=== PATIENT | male | born 1985 | race Caucasian/White ===

== ENCOUNTER 2018-08-11 09:38 | Emergency (ER) | payer BC ==
--- NOTE | 2018-08-11 10:00 | EDPHY ---
H & P Stated Complaint: Bilat ankle weakness and numbness, sent by case management director. Time Seen by Provider: 08/11/18 09:57 HPI/ROS: CHIEF COMPLAINT: Bilateral foot week HISTORY OF PRESENT ILLNESS: 32-year-old male generally healthy arrives via private vehicle. He describes 2 weeks of bilateral foot weakness, notes that when he is walking cross his carpet his bilateral great toes will sometimes get caught on the carpet. He saw a case management director yesterday who referred him to the emergency department today for an MRI of the lumbar spine and then to a neurologist. In speaking the patient further he notes that symptoms tends to started several years ago when he was a teenager took a hard fall landing on his bilateral feet experienced immediate low back pain ever since has been experiencing bilateral ankle instability. He denies: Back pain, incontinence, fever, chills, headache, upper extremity weakness REVIEW OF SYSTEMS: 10 systems reviewed and negative with the exception of the elements mentioned in the history of present illness PAST MEDICAL & SURGICAL HISTORY: No pertinent medical or surgical history SOCIAL HISTORY:Nonsmoker. . No IV drug use. Works as a factory machine computer operator PHYSICAL EXAM (Prior to examination, patient consented to physical exam, hands were washed and my usual and customary physical exam procedures followed) 1) GENERAL: Well-developed, well-nourished, alert and oriented. Appears to be in no acute distress. 2) HEAD: Normocephalic, atraumatic 3) HEENT: Pupils equal, round, reactive to light bilaterally. Sclera anicteric. Nasopharynx, oropharynx, clear, no lesions. Moist Mucous membranes. Ears bilaterally with normal tympanic membranes. 4) NECK: Full range of motion, no meningeal signs. 5) LUNGS: Clear auscultation bilaterally, no wheezes, no rhonchi, no retractions. 6) HEART: Regular rate and rhythm, no murmur, no heave, no gallop. 7) ABDOMEN: No guarding, no rebound, no focal tenderness, negative McBurney's, negative Betancourt's, negative Rovsing's, negative peritoneal sign, 8) MUSCULOSKELETAL: Moving all extremities, no focal areas of tenderness, no obvious trauma. No peripheral edema or discoloration. 9) BACK: No CVA tenderness, no midline vertebral tenderness, no fluctuance, no step-off, no obvious trauma, no visual or palpable abnormality. 10) SKIN: No rash, no petechiae. [11) NEURO: Awake, alert, and oriented to person, place and time. Answers questions appropriately. There were no obvious focal neurologic abnormalities. No cerebellar dysfunction. Cranial nerves 2 through to 12 intact. Normal steady gait. He is not tripping on his feet or his great toes. Upper extremities bilaterally with strength 5 / 5, reflexes 2+. Lower extremity: L4- L5 distribution weakness and decreased sensation to sharp and dull. DIFFERENTIAL DIAGNOSIS: In no particular order include but limited to neurologic disease, lumbar compressive disorder, peripheral neuropathy - Personal History Current Tetanus Diphtheria and Acellular Pertussis (TDAP): Yes - Medical/Surgical History Hx Asthma: No Hx Chronic Respiratory Disease: No Hx Diabetes: No Hx Cardiac Disease: No Hx Renal Disease: No Hx Cirrhosis: No Hx Alcoholism: No Hx HIV/AIDS: No Hx Splenectomy or Spleen Trauma: No Other PMH: Bilat ankle injuries - Social History Smoking Status: Never smoked Constitutional: Initial Vital Signs Temperature (C) 36.5 C 08/11/18 09:39 Heart Rate 72 08/11/18 09:39 Respiratory Rate 16 08/11/18 09:39 Blood Pressure 141/87 H 08/11/18 09:39 O2 Sat (%) 98 08/11/18 09:39 O2 Delivery Mode Room Air Allergies/Adverse Reactions: No Known Allergies Allergy (Unverified 08/11/18 09:45) Home Medications: Medication Instructions Recorded NK [No Known Home Meds] 08/11/18 Medical Decision Making - Diagnostics Imaging Results: Imaging Impressions Lumbar Spine MRI 08/11/18 10:13 Impression: 1. Mild degenerative disk disease at L4-L5 with minimal 4 mm of subluxation and spondylolysis. Findings discussed with Tim DIANE at 11:26 hour, 08/11/2018. Thoracic Spine MRI 08/11/18 12:09 Impression: Normal MRI thoracic spine without and with contrast. Images reviewed by myself ED Course/Re-evaluation: 10:18 a.m.: Emergent MRI of the lumbar spine will be obtained on this patient for evaluation of 2 weeks of bilateral foot drop and weakness in the approximate L4-L5 distribution. Care of patient under supervision of secondary supervising physician Dr Christianson with whom I discussed case. 12:12 p.m.: Consultation with Dr. Emil Izquierdo Neurology who recommends obtaining a thoracic spine MRI as well. 2:55 p.m.: Thoracic spine MRI results this time interpreted by staff radiologist as negative. Images reviewed myself 3:00 p.m.: Patient re-evaluated. He remains with neurologic examination per is baseline with no gross foot drop however he does have weakness with dorsiflexion pain . Plan will be discharge, follow up with neurology , Dr. Ryan Cisse or Dr Janine nguyen as he may necessitate EMG. He feels comfortable being discharged. - Data Points Laboratory Results: 08/11/18 12:35 POC Hgb 15.6 gm/dL gm/dL (13.7-17.5) POC Hct 46 % % (40-51) POC Sodium 142 mEq/L mEq/L (135-145) POC Potassium 4.1 mEq/L mEq/L (3.3-5.0) POC Chloride 105 mEq/L mEq/L (97-110) POC Total CO2 24 mEq/L mEq/L (22-31) POC BUN 13 mg/dL mg/dL (7-23) POC Creatinine 1.1 mg/dL mg/dL (0.7-1.3) POC Glucose 95 mg/dL mg/dL (70-100) Point of Care Test Results: Chemistry 08/11/18 12:35 POC Sodium 142 mEq/L mEq/L (135-145) POC Potassium 4.1 mEq/L mEq/L (3.3-5.0) POC Chloride 105 mEq/L mEq/L (97-110) POC Total CO2 24 mEq/L mEq/L (22-31) POC BUN 13 mg/dL mg/dL (7-23) POC Creatinine 1.1 mg/dL mg/dL (0.7-1.3) POC Glucose 95 mg/dL mg/dL (70-100) ISTAT H&H 08/11/18 12:35 POC Hgb 15.6 gm/dL gm/dL (13.7-17.5) POC Hct 46 % % (40-51) Departure - Departure Disposition: Home, Routine, Self-Care Clinical Impression: Bilateral foot-drop Condition: Good Instructions: Foot Drop (ED) Additional Instructions: Return to the emergency department if you develop new or worsening symptoms, if you develop incontinence, if you develop fevers, if you develop headache, if you develop leg weakness, if you are unable to walk, or any other symptoms that concern you. Referrals: Ryan Cisse, [Medical Doctor] - 2-3 days, call for appt. ()
--- NOTE | 2018-08-11 12:10 | PDCONSULT ---
[employer] Note: Phone neurologic consultation: This patient was sent to the ED by his vehicle detailer for 2 weeks of mild bilateral lower extremity numbness and sensation of weakness. Per ED staff, there is a minimal or trace weakness. Ambulation is fairly normal. Lumbar spine MRI does not show any significant abnormalities. Recommendations: 1. Thoracic spine MRI with and without contrast. 2. If thoracic spine MRI is negative, he can have outpatient neurologic follow- up with EMG/nerve conduction studies. They will call if there is any abnormality on MRI thoracic spine.
[2018-08-11] MEDS ORDERED: GADOBUTROL 10 ML VIAL IVP ONE (13:31)
[2018-08-11 15:08] VITALS: BP 120/69
== END 2018-08-11 15:20 | disposition home or self-care (01) ==
DX: M21.372 Foot drop, left foot (principal); M21.371 Foot drop, right foot; M51.36 Other intervertebral disc degeneration, lumbar region; M43.06 Spondylolysis, lumbar region; S33.140A Subluxation of L4/L5 lumbar vertebra, initial encounter; W19.XXXS Unspecified fall, sequela
CPT/HCPCS: 82435-PO; 82565-PO; 82947-PO; 84132-PO; 84295-PO; 84520-PO; 85014-ER; A9585